=== PATIENT | female | born 1965 | race Caucasian/White ===

== ENCOUNTER 2024-04-26 04:45 | Day surgery (SDC) | payer OTHER ==
[2024-04-22 17:12] VITALS: BMI 32.2
[2024-04-26] MEDS ORDERED: oxyCODONE HCL 5 MG TABLET PO PRN (08:18)
[2024-04-26] MEDS ORDERED: ACETAMINOPHEN 325 MG TABLET (FP) PO PRN (08:18)
[2024-04-26] MEDS ORDERED: IBUPROFEN 400 MG TABLET (FP) PO PRN (08:18)
[2024-04-26] MEDS ORDERED: MIDAZOLAM HCL 2 MG/2 ML SINGLE DOSE VIAL ONE (09:52)
[2024-04-26] MEDS: ceFAZolin SODIUM 1 GM VIAL IVPB ONE (10:25)
[2024-04-26] MEDS ORDERED: PROPOFOL 20 ML ONE (10:26)
[2024-04-26] MEDS ORDERED: ONDANSETRON 4 MG/2 ML VIAL ONE (10:26)
[2024-04-26] MEDS ORDERED: LIDOCAINE HCL/PF 2% SDV 5ML VIAL ONE (10:26)
[2024-04-26] MEDS ORDERED: ceFAZolin SODIUM 1 GM VIAL ONE ×2 (10:26)
[2024-04-26] MEDS ORDERED: DEXAMETHASONE SOD PHOSPHATE 4 MG/1 ML VIAL ONE ×2 (10:26)
[2024-04-26] MEDS ORDERED: ONDANSETRON 4 MG/2 ML VIAL IVPUSH PRN (11:11)
[2024-04-26] MEDS: LACTATED RINGERS SOLUTION 1,000 ML IV SCH (11:51)
[2024-04-26 12:27] VITALS: RESP 18
[2024-04-26 13:58] VITALS: BP 120/67; PULSE 65; TEMP 97.4
== END 2024-04-26 13:48 | disposition home or self-care (01) ==
LOC: JASU-SURG 04:45
PROVIDERS: ATTEND Obstetrics & Gynecology
PROC: 0UBC8ZX Excision of Cervix, Via Natural or Artificial Opening Endoscopic, Diagnostic (ICD-10-PCS; 2024-04-26)
PROC: 0UBC8ZZ Excision of Cervix, Via Natural or Artificial Opening Endoscopic (ICD-10-PCS; principal; 2024-04-26 09:30)
PROC: 0UB98ZZ Excision of Uterus, Via Natural or Artificial Opening Endoscopic (ICD-10-PCS; 2024-04-26 09:30)
DX: N84.1 Polyp of cervix uteri (principal); N84.0 Polyp of corpus uteri; N88.2 Stricture and stenosis of cervix uteri
CPT/HCPCS: 86850; 86900; 86901; 88305-TC; 88307-TC; 88341-TC; 88342-TC; 94760